=== PATIENT | male | born 1980 | race Caucasian/White ===

== ENCOUNTER 2016-11-29 09:52 | Emergency (ER) | payer OTHER ==
[~2016-11-29] VITALS: Ht 185.4 cm; Wt 85.0 kg
[~2016-11-29 09:52] MED LIST: MOTR200T4 PO; PROM25TA5 PO
[2016-11-29 09:53] VITALS: BP 141/87; PULSE 72; RESP 16; TEMP 99; O2SAT 100
[2016-11-29] MEDS ORDERED: IBUP800T23 PO (10:10)
[2016-11-29] MEDS ORDERED: ROBA500T PO (10:10)
[2016-11-29] MEDS ORDERED: IBUPROFEN 800 MG TAB PO ONE (10:15)
[2016-11-29] MEDS ORDERED: METHOCARBAMOL 500 MG TAB PO ONE (10:15)
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
== END 2016-11-29 10:30 | disposition home or self-care (01) ==
LOC: NEPK 09:52
DX: S39.012A Strain of muscle, fascia and tendon of lower back, initial encounter (principal); V43.52XA Car driver injured in collision with other type car in traffic accident, initial encounter
CPT/HCPCS: 99283